=== PATIENT | male | born 1980 | race Caucasian/White ===

== ENCOUNTER 2017-04-24 10:58 | Emergency (ER) | payer MEDICARE, OTHER ==
[~2017-04-24] VITALS: Ht 182.9 cm; Wt 118.8 kg
[2017-04-24] MEDS ORDERED: DIAZEPAM 5 MG TABLET ONE (11:25)
[2017-04-24] MEDS ORDERED: OXYcodone/APAP 5/325MG TABLET ONE (11:25)
[2017-04-24] MEDS ORDERED: OXYcodone/APAP 5/325MG TABLET PO ONE (11:30)
[2017-04-24] MEDS ORDERED: DIAZEPAM 5 MG TABLET PO ONE (11:30)
[2017-04-24 12:18] VITALS: BP 117/92
[2017-04-24] MEDS ORDERED: KETOROLAC 30 MG/1 ML ONE (13:35)
[2017-04-24] MEDS ORDERED: KETOROLAC 30 MG/1 ML IM ONE (14:00)
== END 2017-04-24 14:13 | disposition home or self-care (01) ==
LOC: ED 11:26
DX: S22.080A Wedge compression fracture of T11-T12 vertebra, initial encounter for closed fracture (principal); S43.401A Unspecified sprain of right shoulder joint, initial encounter; S93.492A Sprain of other ligament of left ankle, initial encounter; S16.1XXA Strain of muscle, fascia and tendon at neck level, initial encounter; W11.XXXA Fall on and from ladder, initial encounter; Y93.89 Activity, other specified; Y92.009 Unspecified place in unspecified non-institutional (private) residence as the place of occurrence of the external cause; Y99.9 Unspecified external cause status
CPT/HCPCS: 70450; 72072; 72110; 72125; 73030; 73590; 73610; 73630; 96372; 99284; J1885

== ENCOUNTER 2018-11-13 22:01 | Emergency (ER) | payer MEDICARE ==
[~2018-11-13] VITALS: Ht 182.9 cm; Wt 117.2 kg
[2018-11-14 00:28] VITALS: BP 113/82
== END 2018-11-14 00:40 | disposition home or self-care (01) ==
LOC: ED 23:59
DX: S91.205A Unspecified open wound of left lesser toe(s) with damage to nail, initial encounter (principal); S90.222A Contusion of left lesser toe(s) with damage to nail, initial encounter; S97.122A Crushing injury of left lesser toe(s), initial encounter; G43.009 Migraine without aura, not intractable, without status migrainosus; X58.XXXA Exposure to other specified factors, initial encounter; Y93.89 Activity, other specified; Y92.009 Unspecified place in unspecified non-institutional (private) residence as the place of occurrence of the external cause; Y99.8 Other external cause status
CPT/HCPCS: 11740; 29515; 73630; 96372; 99283; J0780; J1885; Q0163

== ENCOUNTER → 2019-08-13 | Outpatient (CLI) | payer MEDICARE ==
[~2019-08-13] MED LIST: IMITREX; OMNIPAQUE 350 MG/ML, 100ML BOTTLE ONE
== END | disposition home or self-care (01) ==
LOC: RAD 15:16
PROVIDERS: ATTEND Physician Assistant
DX: J06.9 Acute upper respiratory infection, unspecified (principal); K86.89 Other specified diseases of pancreas
CPT/HCPCS: 71275; Q9967